=== PATIENT | female | born 1940 | race Caucasian/White ===

== ENCOUNTER → 2019-07-25 | Outpatient (CLI) | payer MEDICARE ==
[~2019-07-25] MED LIST: CHOL10003 PO; CIDE300T PO; MAGN400C PO; ZINC30TA2 PO
[2019-07-25 12:44] LABS: ALANINE AMINOTRANSFERASE 25 U/L (12-78); ALBUMIN 3.7 g/dL (3.4-5.0); ANION GAP 7 mmol/L (5-15); CALCIUM 10.4 mg/dL (8.5-10.1); CHLORIDE 110 mmol/L (98-107)
[2019-07-25 12:46] LABS: ALKALINE PHOSPHATASE 180 U/L (45-117); BILIRUBIN,TOTAL 0.4 mg/dL (0.2-1.0)
== END | disposition home or self-care (01) ==
LOC: STAR 11:17
PROVIDERS: ATTEND Surgery
DX: Z01.818 Encounter for other preprocedural examination (principal)
CPT/HCPCS: 36415; 80053; 93005

== ENCOUNTER 2019-08-08 06:39 | Day surgery (SDC) | payer MEDICARE ==
[~2019-08-08] VITALS: Ht 157.5 cm; Wt 61.5 kg
[2019-08-08] MEDS ORDERED: LACTATED RINGERS 1,000 ML IV SCH (07:29)
[2019-08-08 07:30] VITALS: BP 163/88
[2019-08-08] MEDS ORDERED: LIDOCAINE-MPF 1%, 2ML INFIL ONE (07:30)
[2019-08-08] MEDS ORDERED: FENTANYL PF 250 MCG/5ML ONE (08:49)
[2019-08-08] MEDS ORDERED: PROPOFOL 50 ML ONE (08:49)
[2019-08-08] MEDS ORDERED: ROCURONIUM 10MG/ML,5ML ONE (08:54)
[2019-08-08] MEDS ORDERED: DEXAMETHASONE 4 MG/ML, 1ML ONE (08:54)
[2019-08-08] MEDS ORDERED: ONDANSETRON 2MG/ML, 2ML ONE (08:54)
[2019-08-08] MEDS ORDERED: SUCCINYLCHOLINE 20 MG/ML, 10ML ONE (08:54)
[2019-08-08] MEDS ORDERED: OXYcodone 5 MG/5 ML ORAL.SOL UDC PO PRN (09:30)
[2019-08-08] MEDS ORDERED: DIAZEPAM 5 MG/ML, 2ML IVPush PRN (09:30)
[2019-08-08] MEDS ORDERED: HYDROmorphone 2 MG/ML, 1ML IVPush PRN (09:30)
[2019-08-08] MEDS ORDERED: ONDANSETRON ODT 8 MG PO PRN (09:30)
[2019-08-08] MEDS ORDERED: ACETAMINOPHEN 325 MG TABLET PO PRN (09:30)
[2019-08-08] MEDS ORDERED: PROMETHAZINE 25 MG/ML, 1ML IV PRN (09:30)
[2019-08-08] MEDS ORDERED: EPHEDRINE 50 MG/ML, 1ML IVPush PRN (09:30)
[2019-08-08] MEDS ORDERED: ONDANSETRON 2MG/ML, 2ML IV PRN (09:30)
[2019-08-08] MEDS ORDERED: FENTANYL PF 100 MCG/2ML IV PRN (09:30)
[2019-08-08] MEDS ORDERED: EPHEDRINE 50 MG/ML, 1ML IM PRN (09:30)
[2019-08-08] MEDS ORDERED: MIDAZOLAM 1 MG/ML, 2ML IV PRN (09:30)
[2019-08-08 10:00] LABS: IOPTH BASELINE 233 pg/mL
[2019-08-08 10:01] LABS: 10MIN %DROP IOPTH 83 %; 5MIN %DROP IOPTH 75 %
== END 2019-08-08 12:15 | disposition home or self-care (01) ==
LOC: OUT 06:39
PROVIDERS: ATTEND Surgery
DX: E21.0 Primary hyperparathyroidism (principal); D35.1 Benign neoplasm of parathyroid gland; M85.80 Other specified disorders of bone density and structure, unspecified site; E11.9 Type 2 diabetes mellitus without complications; Z90.710 Acquired absence of both cervix and uterus; Z98.890 Other specified postprocedural states
CPT/HCPCS: 60500; 82962; 83970; 88305; 88331; C1760; J0330; J1100; J2405; J2704; J3010; J7120